=== PATIENT | female | born 1990 | race African-American/Black ===

== ENCOUNTER 2024-11-01 18:07 | Emergency (ER) | payer SELFPAY, OTHER ==
[2024-11-01] MEDS ORDERED: Acetaminophen 325 MG TAB ONE (20:20)
[2024-11-01 21:45] LABS: Pregnancy Test - Urine (BHCG) Negative (Negative); Pregu Control Background? CLEAR/WHITE (CLR/WHITE); Pregu Control Bar Appear? YES (CONTROL BAR)
[2024-11-01 21:47] LABS: Bacteria/HPF None Seen HPF (None Seen); CAUTI Indications for Culture Acute Hematuria; Glucose, Urine (Dipstick) Normal (Negative); Leukocyte 75 Leu/uL (Negative); Protein, Urine (Dipstick) 10 mg/dL (Neg-Trace); RBC/HPF Greater than 50 HPF (0-3); Specific Gravity, Urine 1.018 (1.002-1.036)
[2024-11-01 21:48] LABS: Urine Culture Reflex Yes Yes
== END 2024-11-01 23:22 ==
LOC: ERS 18:07
DX: S39.012A Strain of muscle, fascia and tendon of lower back, initial encounter (principal); N39.0 Urinary tract infection, site not specified; V49.9XXA Car occupant (driver) (passenger) injured in unspecified traffic accident, initial encounter; Y92.410 Unspecified street and highway as the place of occurrence of the external cause
CPT/HCPCS: 72131; 72192; 81001; 81025; 87086